=== PATIENT | female | born 1995 | race African-American/Black ===

== ENCOUNTER 2017-09-06 09:56 | Emergency (ER) | payer MEDICAID, OTHER ==
[~2017-09-06] VITALS: Ht 154.9 cm; Wt 71.2 kg
[2017-09-06 10:10] VITALS: BP 126/95
[2017-09-06] MEDS ORDERED: ACETAMINOPHEN 500 MG TAB PO ONE (11:00)
[2017-09-06] MEDS ORDERED: cefTRIAXone SOD 1,000 MG VL IM ONE (11:00)
[2017-09-06] MEDS ORDERED: metFORMIN HYDROCHLORIDE 500 MG TAB PO ONE (11:45)
== END 2017-09-06 12:14 | disposition home or self-care (01) ==
LOC: ER 09:56
DX: J03.90 Acute tonsillitis, unspecified (principal); E11.65 Type 2 diabetes mellitus with hyperglycemia
CPT/HCPCS: 71020; 81025; 82962; 96372; 99284; J0696

== ENCOUNTER 2017-10-08 00:53 | Emergency (ER) | payer MEDICAID, OTHER ==
[~2017-10-08] VITALS: Ht 154.9 cm; Wt 70.3 kg
[2017-10-08 01:32] LABS: Basophils # (auto) 0.2 uL; Basophils % (auto) 0.9 % (0.0-2.0); Eosinophils # (auto) 0.1 uL; Eosinophils % (auto) 0.3 % (0.0-7.0); Hematocrit 38.7 % (36.0-46.0); Lymphocytes # (auto) 4.1 uL; Lymphocytes % (auto) 21.9 % (10.0-50.0); Mean Corpuscular Hgb Conc. 33.7 g/dL (32.0-36.0); Mean Corpuscular Volume 80.4 fL (80.0-100.0); Monocytes % (auto) 5.3 % (0.0-12.0); Neutrophils # (auto) 13.3 uL; Neutrophils % (auto) 71.6 % (37.0-80.0); Platelet Count (auto) 389 10^3/uL (140-450); Red Blood Cells 4.82 10^6/uL (4.0-5.20); Red Cell Distribution Width 13.8 % (11.8-14.3); White Blood Cell 18.5 10^3/uL (4.4-10.8)
[2017-10-08 01:50] LABS: Albumin 3.5 g/dL (3.4-5.0); BUN/Creatinine Ratio 12.1; Bilirubin, Total 0.2 mg/dL (0.2-1.0); Calcium 9.2 mg/dL (8.5-10.1); Potassium 3.6 mmol/L (3.5-5.1); Total Protein 8.2 g/dL (6.4-8.2)
[2017-10-08 01:55] LABS: Urine Bacteria FEW /hpf (None Seen); Urine Blood 3+ /uL (Negative); Urine Mucus FEW (None Seen); Urine WBC 28 /hpf (0 - 5)
[2017-10-08 05:32] VITALS: BP 123/83
[2017-10-08] MEDS ORDERED: cefTRIAXone 1GM/10ml IVPUSH 10 ML IV ONE (06:45)
[2017-10-08] MEDS ORDERED: HYDROcodone-ACET 5/325MG TAB PO ONE (07:15)
[2017-10-08] MEDS ORDERED: SODIUM CHLORIDE 0.9% 1,000 ML IV ONE (07:22)
[2017-10-08] MEDS ORDERED: InsuLIN REG 1unit/0.01ml Soln (100units/ml) SC ONE (07:30)
== END 2017-10-08 07:58 | disposition left against medical advice (07) ==
LOC: ER 00:56
DX: N39.0 Urinary tract infection, site not specified (principal); E11.9 Type 2 diabetes mellitus without complications
CPT/HCPCS: 36415; 74176; 80053; 81001; 82150; 83690; 84702; 85025; 96374

== ENCOUNTER 2018-07-04 14:00 | Observation (INO) | payer MEDICAID ==
[2018-07-04] MEDS ORDERED: INSU100I2 SC ×2 (16:03)
[2018-07-04] MEDS ORDERED: PREN-96 PO (16:03)
== END 2018-07-04 15:05 | disposition home or self-care (01) | DRG 566 ==
LOC: LDRP 14:00
PROVIDERS: ADMIT Obstetrics & Gynecology; ATTEND Obstetrics & Gynecology
DX: O26.892 Other specified pregnancy related conditions, second trimester (principal); M54.30 Sciatica, unspecified side; R10.2 Pelvic and perineal pain; O99.89 Other specified diseases and conditions complicating pregnancy, childbirth and the puerperium; Z3A.20 20 weeks gestation of pregnancy
CPT/HCPCS: 59025; 81002; G0378

== ENCOUNTER 2018-09-14 15:30 | Observation (INO) | payer SELFPAY ==
[~2018-09-14] VITALS: Ht 154.9 cm; Wt 78.9 kg
[~2018-09-14 15:30] MED LIST: INSU100I2 SC; PREN-96 PO
[2018-09-14 16:09] LABS: Urine Bacteria NONE SEEN /hpf (None Seen); Urine Blood Negative /uL (Negative); Urine Mucus FEW (None Seen); Urine Specific Gravity 1.027 (1.001-1.035); Urine WBC 52 /hpf (0 - 5)
[2018-09-14 16:23] LABS: Alcohol, Urine < 3.0 mg/dL (0-5); Amphetamine Screen, Urine NEGATIVE (NEGATIVE); Barbiturate Scree,Urine NEGATIVE (NEGATIVE); Benzodiazephine Screen, Urine NEGATIVE (NEGATIVE); Cannabinoid Screen, Urine NEGATIVE (NEGATIVE); Cocaine Screen, Urine NEGATIVE (NEGATIVE); Opiate Scree,Urine NEGATIVE (NEGATIVE); Phencyclidine Screen, Urine NEGATIVE (NEGATIVE)
[2018-09-14] MEDS ORDERED: ONDANSETRON HCL 4 MG/2 ML VIAL IV PRN (16:45)
[2018-09-14] MEDS ORDERED: SODIUM CHLORIDE 0.9% 1,000 ML IV ONE (16:45)
[2018-09-14] MEDS ORDERED: INSUINJ2 SC ×2 (18:25)
== END 2018-09-14 18:10 | disposition home or self-care (01) | DRG 833 ==
LOC: LDRP 15:30
PROVIDERS: ADMIT Specialist; ATTEND Specialist
DX: O26.893 Other specified pregnancy related conditions, third trimester (principal); O24.419 Gestational diabetes mellitus in pregnancy, unspecified control; R10.9 Unspecified abdominal pain; R51 Headache; W19.XXXA Unspecified fall, initial encounter; Y93.89 Activity, other specified; Y92.89 Other specified places as the place of occurrence of the external cause; Y99.8 Other external cause status; Z3A.30 30 weeks gestation of pregnancy
CPT/HCPCS: 59025; 80307; 81001; 81002; 82948; 82962; G0378; J7030; 96361

== ENCOUNTER 2018-09-18 12:53 | Emergency (ER) | payer MEDICAID ==
[~2018-09-18] VITALS: Ht 154.9 cm; Wt 78.9 kg
[~2018-09-18 12:53] MED LIST changes: +INSUINJ2 SC
[2018-09-18 13:01] VITALS: BP 139/80
[2018-09-18 13:50] LABS: Basophils # (auto) 0 uL; Eosinophils # (auto) 0.1 uL; Red Cell Distribution Width 14.6 % (11.8-14.3)
[2018-09-18 13:52] LABS: Basophils % (auto) 0.2 % (0.0-2.0); Eosinophils % (auto) 0.4 % (0.0-7.0); Hematocrit 30.6 % (36.0-46.0); Hemoglobin 9.9 g/dL (12.2-16.2); Lymphocytes # (auto) 2.3 uL; Lymphocytes % (auto) 16.4 % (10.0-50.0); Mean Corpuscular Hemoglobin 25.2 pg (28.0-32.0); Mean Corpuscular Hgb Conc. 32.3 g/dL (32.0-36.0); Mean Corpuscular Volume 77.9 fL (80.0-100.0); Monocytes # (auto) 0.7 uL; Monocytes % (auto) 5.1 % (0.0-12.0); Neutrophils # (auto) 10.8 uL; Neutrophils % (auto) 77.9 % (37.0-80.0); Platelet Count (auto) 340 10^3/uL (140-450); Red Blood Cells 3.93 10^6/uL (4.0-5.20); White Blood Cell 13.9 10^3/uL (4.4-10.8)
[2018-09-18 14:11] LABS: Albumin 2.5 g/dL (3.4-5.0); Anion Gap 6 (5-15); Blood Urea Nitrogen 5 mg/dL (7-18); Calcium 8.4 mg/dL (8.5-10.1); Carbon Dioxide 25 mmol/L (21-32); Chloride 104 mmol/L (98-107); Glucose 218 mg/dL (74-106); Potassium 3.8 mmol/L (3.5-5.1); Sodium 135 mmol/L (136-145)
[2018-09-18 14:15] LABS: Alanine Aminotransferase 9 U/L (13-56); Alkaline Phosphatase 97 U/L (45-117); Aspartate Aminotransferase 10 U/L (15-37); BUN/Creatinine Ratio 11.1; Bilirubin, Total 0.2 mg/dL (0.2-1.0); GFR African American 224 mL/min; GFR Non-African American 185 mL/min; Total Protein 7.2 g/dL (6.4-8.2)
[2018-09-18 15:03] LABS: INR 0.93 (0.9-1.15)
== END 2018-09-18 22:37 | disposition left against medical advice (07) ==
LOC: ER 12:56
DX: R07.9 Chest pain, unspecified (principal); Z53.21 Procedure and treatment not carried out due to patient leaving prior to being seen by health care provider
CPT/HCPCS: 36415; 80053; 84484; 85025; 85610; 93005

== ENCOUNTER 2018-10-01 22:29 | Observation (INO) | payer MEDICAID | END 2018-10-01 23:57 | disposition home or self-care (01) | DRG 566 | LOC: LDRP 22:29 | PROVIDERS: ADMIT Obstetrics & Gynecology; ATTEND Obstetrics & Gynecology | DX: O99.810 Abnormal glucose complicating pregnancy (principal); O62.9 Abnormality of forces of labor, unspecified; O99.013 Anemia complicating pregnancy, third trimester; Z3A.32 32 weeks gestation of pregnancy | CPT/HCPCS: 59025; 81002; 82948; G0378 ==

== ENCOUNTER 2024-11-24 01:49 | Emergency (ER) | payer MEDICAID ==
[~2024-11-24] VITALS: Ht 154.9 cm; Wt 78.2 kg
[2024-11-24] MEDS ORDERED: ACETAMINOPHEN 325 MG TAB PO ONE (02:30)
[2024-11-24] MEDS ORDERED: BACDST PO (02:36)
[2024-11-24] MEDS ORDERED: ACET500T58 PO (02:36)
--- NOTE | 2024-11-24 02:37 | ED.PDOC ---
History of Present Illness(SKN HPI Comments 29-YEAR-OLD FEMALE PRESENTS TO ER FOR WOUND CHECK. PATIENT WITH PAST MEDICAL HISTORY SIGNIFICANT FOR POORLY CONTROLLED DIABETES REPORTS THAT SHE STARTED EXPERIENCING A TENDER PAINFUL LUMP LOCALIZED TO LEFT LOWER BUTTOCK YESTERDAY AND PRESENTS TO ER TODAY FOR WOUND CHECK. SHE REPORTS 10/10 PAIN LOCALIZED TO LEFT LOWER BUTTOCK. NOTES SHE HAS BEEN TAKING IBUPROFEN FOR PAIN WITH SLIGHT RELIEF. PATIENT PRESENTS TO ER AMBULATORY ON ARRIVAL, WITH STEADY GAIT, IN NO DISTRESS. DENIES FEVER, BODY ACHES, CHILLS, SKIN DRAINAGE, INJURY, CHANGES IN URINATION/BM OR ANY FURTHER SYMPTOMS/COMPLAINTS Chief Complaint: Wound Check Time Seen by MD: 02:15 Primary Care Provider: ARACELI History of Present Illness: Nurses Notes, Medications, Allergies Allergies: Coded Allergies: NO KNOWN ALLERGIES (Unverified , 12/20/14) Home Meds Reported Medications Insulin NPH (Human) (Isophane) (Humulin N) 100 Unit/Ml Inj, 10 UNIT SC PMHY, INJ 09/14/18 Insulin NPH (Human) (Isophane) (Humulin N) 100 Unit/Ml Inj, 12 UNIT SC AMHY, INJ 09/14/18 Vit W/ Ferrous Fumara ( One Daily) Daily Tab, 1 TAB PO DAILY, #90 TAB 3 Refills 07/04/18 Insulin Lispro (Human) (Humalog) 100 Unit/Ml Inj, 6 UNIT SC BID, INJ 07/04/18 Discontinued Scripts Acetaminophen (Acetaminophen) 500 Mg Tab, 500 MG PO Q4HPRN, #30 TAB 0 Refills Prov:ORQUIDEA TRONCOSO 11/24/24 Sulfamethoxazole W/Trimethopri (Bactrim Ds Tablet) 1 Tab Tb, 1 TAB PO BID for 7 Days, #14 TAB 0 Refills Prov:ORQUIDEA TRONCOSO 11/24/24 Information Source: Patient Mode of Arrival: Ambulatory Past Medical History PAST MEDICAL HISTORY: DM Surgical History: , Tonsillectomy 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 Pertinent FIELD SAMPLING TECHNICIAN History [facility] 11-14-24 Family History Family History: Unknown Social History Smoker: Non-Smoker Alcohol: Denies ETOH Use Drugs: Denies Drug Use Lives In: Home Constitutional: denies: chills, diaphoresis, fatigue, fever, malaise, sweats, weakness, others EENTM: denies: blurred vision, double vision, ear bleeding, ear discharge, ear drainage, ear pain, ear ringing, eye pain, eye redness, hearing loss, mouth pain, mouth swelling, nasal discharge, nose bleeding, nose congestion, nose pain, photophobia, tearing, throat pain, throat swelling, voice changes, others Respiratory: denies: cough, hemoptysis, orthopnea, SOB at rest, shortness of breath, SOB with excertion, stridor, wheezing, others Cardiovascular: denies: chest pain, dizzy spells, diaphoresis, Dyspnea on exertion, edema, irregular heart beat, left arm pain, lightheadedness, palpitations, PND, syncope, others Gastrointestinal: denies: abdomen distended, abdominal pain, blood streaked bowels, constipated, diarrhea, dysphagia, difficulty swallowing, hematemesis, melena, nausea, poor appetite, poor fluid intake, rectal bleeding, rectal pain, vomiting, others Genitourinary: denies: abnormal vagina bleeding, burning, dyspareunia, dysuria, flank pain, frequency, hematuria, incontinence, pain, , vagina discharge, urgency, others Neurological: denies: dizziness, fainting, headache, left sided numbness, left sided weakness, numbness, paresthesia, pre-existing deficit, right sided numbness, right sided weakness, seizure, speech problems, tingling, tremors, weakness, others Musculoskeletal: denies: back pain, gout, joint pain, joint swelling, muscle pain, muscle stiffness, neck pain, others Integumetry: reports: others ( STATED IN HPI) Allergic/Immunocompromised: denies: Difficulty Healing, Frequent Infections, Hives, Itching, others Hematologic/Lymphatic: denies: anemia, blood clots, easy bleeding, easy bruising, swollen glands, others Endocrine: denies: excessive hunger, excessive sweating, excessive thirst, excessive urination, flushing, intolerance to cold, intolerance to heat, un explained weight gain, unexplained weight loss, others Psychiatric: denies: anxiety, bipolar disorder, depression, hopeless, panic disorder, schizophrenia, sleepless, suicidal, others Physical Exam General Appearance: No Apparent Distress, Obese HEENT: PERRL/EOMI Neck: Full Range of Motion, Non-Tender, Normal Respiratory: Chest Non-Tender, Lungs Clear, No Accessory Muscle Use, No Respira tory Distress, Normal Breath Sounds Cardiovascular: No Murmur, No Gallop, Regular Rate/Rhythm Breast Exam: Deferred Gastrointestinal: NOT DONE Genitalia: Deferred Pelvic: Deferred Rectal: Deferred Extremities: Normal capillary refill, Normal range of motion Neurologic: Alert, commutator v ring assembler II-XII nml as Tested, No Motor Deficits, Normal Affect, Normal Mood, No Sensory Deficits Cerebellar Function: Normal Reflexes: Normal Skin: Dry, Warm, Other (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 NO FLUCTUANCE/DRAINAGE/FURTHER SKIN CHANGES NOTED) Peripheral Pulses: 2+ Radial (R), 2+ Radial (L), 2+ Brachial (R), 2+ Brachial (L) Lymphatic: No Adenopathy Was a procedure done? Was a procedure done?: No Sedation Sedation?: No Differential Diagnosis (INTG) Differential Diagnosis: Abrasion Differential Diagnosis: Abscess Differential Diagnosis: Retained Foreign Body, Other (DKA) X-Ray, Labs, Meds, VS Vital Signs Date Time Temp Pulse Resp B/P (MAP) Pulse Ox O2 Delivery O2 Flow Rate FiO2 11/24/24 03:51 149/98 11/24/24 03:03 108 20 98 Room Air 11/24/24 02:51 173/111 11/24/24 02:45 98.0 108 20 173/111 (131) 98 98.0 11/24/24 01:49 97.6 112 18 164/110 (128) 100 97.6 Lab Test 11/24/24 02:33 Range/Units White Blood Count 15.0 H 4.4-10.8 10^3/uL Red Blood Count 4.78 4.0-5.20 10^6/uL Hemoglobin 13.0 12.2-16.2 g/dL Hematocrit 39.6 36.0-46.0 % Mean Corpuscular Volume 83.0 80.0-100.0 fL Mean Corpuscular Hemoglobin 27.2 L 28.0-32.0 pg Mean Corpuscular Hemoglobin Concent 32.8 32.0-36.0 g/dL Red Cell Distribution Width 14.5 H 11.8-14.3 % Platelet Count 353 140-450 10^3/uL Mean Platelet Volume 8.3 6.9-10.8 fL Neutrophils (%) (Auto) 72.9 37.0-80.0 % Lymphocytes (%) (Auto) 20.6 10.0-50.0 % Monocytes (%) (Auto) 5.3 0.0-12.0 % Eosinophils (%) (Auto) 0.4 0.0-7.0 % Basophils (%) (Auto) 0.8 0.0-2.0 % Neutrophils # (Auto) 10.9 H 1.6-8.6 10 ^3/uL Lymphocytes # (Auto) 3.1 0.4-5.4 10 ^3/uL Monocytes # (Auto) 0.8 0-1.3 10 ^3/uL Eosinophils # (Auto) 0.1 0-0.8 10 ^3/uL Basophils # (Auto) 0.1 0-0.2 10 ^3/uL Nucleated Red Blood Cells 0.1 % Sodium Level 128 L 136-145 mmol/L Potassium Level 3.9 3.5-5.1 mmol/L Chloride Level 95 L 98-107 mmol/L Carbon Dioxide Level 25 20-31 mmol/L Anion Gap 8 5-15 Blood Urea Nitrogen 7 L 9-23 mg/dL Creatinine 0.95 0.550-1.02 mg/dL Glomerular Filtration Rate Calc 84 >90 mL/min BUN/Creatinine Ratio 7.4 L 10.0-20.0 Serum Glucose 615 *H 74-106 mg/dL Calcium Level 9.9 8.7-10.4 mg/dL CBC REVIEWED- WBC 15.0 BMP REVIEWED-SODIUM 128, CHLORIDE 95, SERUM GLUCOSE 615, BICARB-NORMAL, ANION GAP-NORMAL LACTIC ACID ORDERED ROCEPHIN 1 G IM ORDERED TYLENOL #3 1 TABLET P.O. ORDERED CLONIDINE .2 MG P.O. ORDERED HEP-LOCK IV ORDERED - PATIENT REFUSED NS 1 LITER IV ORDERED - PATIENT REFUSED INSULIN 10 UNITS IV ORDERED- PATIENT REFUSED DISCUSSED WITH PATIENT THE NEED FOR ADMISSION DUE TO SEVERE HYPERGLYCEMIA AND CELLULITIS OF LEFT BUTTOCK. PATIENT REFUSED AND STATES SHE WOULD LIKE TO SIGN OUT AGAINST MEDICAL ADVICE SEVERAL ATTEMPTS WERE MADE TO CONVINCE PATIENT TO STAY FOR FURTHER EVALUATION/TREATMENT WITHOUT SUCCESS RISKS OF SIGNING OUT AMA WERE DISCUSSED INCLUDING RISK OF PARTIAL/PERMANENT DISABILITY, RISK OF SEPSIS AND RISK OF . PATIENT ALERT AND ORIENTED X4 AND VERBALIZED FULL UNDERSTANDING OF SIGNING OUT AMA PATIENT SIGNED OUT OF ER AGAINST MEDICAL ADVICE Time of 1ST Reevaluation: 02:30 Reevaluation 1ST: N/A Patient Education/Counseling: Diagnosis, Treatment, Need For Follow Up, Other ( PATIENT SIGNED OUT AMA) Family Education/Counseling: No Family Present Departure 1 Departure Time of Disposition: 04:00 Impression: Primary Impression: Severe hyperglycemia due to diabetes mellitus Additional Impression: Cellulitis of buttock, left Disposition: 07 LEFT AGAINST MEDICAL ADVICE Condition: Critical Critical Care Note Critical Care Time?: No Stability Stability form required: No Heart Score Heart Score: Heart Score Response (Comments) Value History N/A 0 EKG N/A 0 Age N/A 0 Risk Factors N/A 0 Troponin N/A 0 Total 0 ORQUIDEA TRONCOSO Nov 24, 2024 02:37
[2024-11-24 02:45] VITALS: BP 173/111; TEMP 98
[2024-11-24] MEDS ORDERED: KETOROLAC TROMETH 60MG/2ML VIAL IM ONE (02:45)
[2024-11-24] MEDS: cefTRIAXone SOD 1,000 MG VL IM ONE (02:51)
[2024-11-24] MEDS: ACETAMINOPHEN/CODEINE#3 (300/30mg) TAB PO ONE (02:51)
[2024-11-24] MEDS: cloNIDine HCL 0.1 MG TAB PO ONE (02:51)
[2024-11-24 02:57] LABS: Basophils # (auto) 0.1 10 ^3/uL (0-0.2); Basophils % (auto) 0.8 % (0.0-2.0); Eosinophils # (auto) 0.1 10 ^3/uL (0-0.8); Eosinophils % (auto) 0.4 % (0.0-7.0); Hematocrit 39.6 % (36.0-46.0); Lymphocytes # (auto) 3.1 10 ^3/uL (0.4-5.4); Lymphocytes % (auto) 20.6 % (10.0-50.0); Mean Corpuscular Hemoglobin 27.2 pg (28.0-32.0); Mean Corpuscular Hgb Conc. 32.8 g/dL (32.0-36.0); Monocytes # (auto) 0.8 10 ^3/uL (0-1.3); Monocytes % (auto) 5.3 % (0.0-12.0); Neutrophils # (auto) 10.9 10 ^3/uL (1.6-8.6); Neutrophils % (auto) 72.9 % (37.0-80.0); Nucleated Red Blood Cells % 0.1 %; Platelet Count (auto) 353 10^3/uL (140-450); Red Blood Cells 4.78 10^6/uL (4.0-5.20); Red Cell Distribution Width 14.5 % (11.8-14.3)
[2024-11-24 03:03] VITALS: PULSE 108; RESP 20; O2SAT 98
[2024-11-24 03:31] LABS: Potassium 3.9 mmol/L (3.5-5.1)
[2024-11-24 03:32] LABS: Anion Gap 8 (5-15); Carbon Dioxide 25 mmol/L (20-31)
[2024-11-24 03:33] LABS: Calcium 9.9 mg/dL (8.7-10.4)
[2024-11-24 03:37] LABS: Chloride 95 mmol/L (98-107); Sodium 128 mmol/L (136-145)
[2024-11-24 03:38] LABS: BUN/Creatinine Ratio 7.4 (10.0-20.0)
[2024-11-24 03:48] LABS: Blood Urea Nitrogen 7 mg/dL (9-23)
[2024-11-24 03:49] LABS: Glucose 615 mg/dL (74-106)
[2024-11-24] MEDS ORDERED: InsuLIN REG 1unit/0.01ml Soln (100units/ml) IV ONE (04:00)
[2024-11-24] MEDS ORDERED: SODIUM CHLORIDE 0.9% 1,000 ML IV ONE ×2 (04:00)
== END 2024-11-24 04:00 | disposition left against medical advice (07) ==
LOC: ER 01:49
DX: E11.65 Type 2 diabetes mellitus with hyperglycemia (principal); L03.317 Cellulitis of buttock; Z79.4 Long term (current) use of insulin; Z90.89 Acquired absence of other organs; Z98.890 Other specified postprocedural states
CPT/HCPCS: 36415; 80048; 85025; 96372; 99283; J0696

== ENCOUNTER 2025-04-27 01:40 | Emergency (ER) | payer MEDICAID ==
[~2025-04-27] VITALS: Ht 162.6 cm; Wt 74.6 kg
--- NOTE | 2025-04-27 02:24 | ED.PDOC ---
Back pain HPI HPI Comments 29-YEAR-OLD FEMALE PRESENTS TO THE ED CHIEF COMPLAINT NECK PAIN THATS RADIATING DOWN TO BILATERAL SHOULDERS AND UPPER BACK SINCE YESTERDAY MORNING. 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 BP: 154/104, PATIENT STATES THAT SHE HAS NOT TAKEN HER BP MEDICATION, AMLODIPINE, BUT HAS IT AT HOME. ALL OTHER VSS. A&OX4. DENIES NUMBNESS, WEAKNESS, CHEST PAIN, SHORTNESS OF BREATH, DIZZINESS, HEADACHE, NAUSEA, VOMITING, SLURRED SPEECH, OR DIFFICULTY BREATHING. Chief Complaint: High Blood Pressure Time Seen by MD: 01:44 Primary Care Provider: ARACELI Reviewed Notes: Nurses Notes, Medications, Allergies Allergies: Coded Allergies: NO KNOWN ALLERGIES (Unverified , 12/20/14) Home Meds Active Scripts Ibuprofen (Ibuprofen) 600 Mg Tab, 600 MG PO TID PRN for 7 Days, #21 TAB Prov:SRUTHI TREJO [facility] 04/27/25 Tizanidine Hydrochloride (Tizanidine Hcl) 4 Mg Tab, 4 MG PO BID PRN for 7 Days, #14 TAB Prov:SRUTHI TREJO [facility] 04/27/25 Reported Medications Insulin NPH (Human) (Isophane) (Humulin N) 100 Unit/Ml Inj, 10 UNIT SC PMHY, INJ 09/14/18 Insulin NPH (Human) (Isophane) (Humulin N) 100 Unit/Ml Inj, 12 UNIT SC AMHY, INJ 09/14/18 Vit W/ Ferrous Fumara ( One Daily) Daily Tab, 1 TAB PO DAILY, #90 TAB 3 Refills 07/04/18 Insulin Lispro (Human) (Humalog) 100 Unit/Ml Inj, 6 UNIT SC BID, INJ 07/04/18 Information Source: Patient Mode of Arrival: Ambulatory Past Medical History PAST MEDICAL HISTORY: DM Surgical History: , Tonsillectomy FISH BIN TENDER History: No Pertinent FISH BIN TENDER History Family History Family History: Unknown Social History Smoker: Non-Smoker Alcohol: Denies ETOH Use Drugs: Denies Drug Use Lives In: Home All Other Systems: Reviewed and Negative (SEE HPI ) Physical Exam General Appearance: No Apparent Distress, Normal HEENT: Pharynx Normal Neck: Limited Range of Motion, Tender Lateral (LEFT LATERAL ) Respiratory: Lungs Clear, No Respiratory Distress, Normal Breath Sounds Cardiovascular: No Edema, No JVD, No Murmur, No Gallop, Normal Peripheral Pulses, Regular Rate/Rhythm Breast Exam: Deferred Gastrointestinal: No Organomegaly, Non Tender, No Pulsatile Mass, Normal Bowel Sounds, Soft Genitalia: Deferred Pelvic: Deferred Rectal: Deferred Extremities: Normal capillary refill, Normal range of motion, No pedal edema Musculoskeletal : Apperance: Normal Neurologic: Alert, No Motor Deficits, Normal Affect, Normal Mood, No Sensory Deficits Cerebellar Function: Normal Reflexes: Normal Skin: Dry, Normal Color, Warm Lymphatic: No Adenopathy Was a procedure done? Was a procedure done?: No Back Pain Differential Dx Differential Diagnosis: Fracture, Musculoskeletal Pain, Strain X-Ray, Labs, Meds, VS Vital Signs Date Time Temp Pulse Resp B/P (MAP) Pulse Ox O2 Delivery O2 Flow Rate FiO2 04/27/25 02:43 98.1 99 18 151/110 (124) 98 98.1 04/27/25 02:43 99 18 98 Room Air 04/27/25 01:41 98.6 96 16 154/104 98 98.6 Current Medications Medications (Trade) Dose Ordered Sig/Octavio Route Start Time Stop Time Status Last Admin Ketorolac Tromethamine (Toradol Injection) 60 mg ONCE ONCE IM 04/27/25 02:30 04/27/25 02:31 DC 04/27/25 02:37 Dexamethasone Sodium Phosphate (Decadron Injection) 10 mg ONCE ONCE IM 04/27/25 02:30 04/27/25 02:31 DC 04/27/25 02:36 Acetaminophen/ Hydrocodone Bitart (Lampe 5/325MG Tab) 1 tab ONCE ONCE PO 04/27/25 02:30 04/27/25 02:31 DC 04/27/25 02:36 X-Ray, Labs, Meds, VS Comment Patient given Toradol 60 mg IM, 10 mg Decadron IM, and Lampe 5 mg p.o.. Reports improvement in function and pain requesting discharge at this time. Script trial of muscle relaxer and anti-inflammatory. Advised on ice and heat. Advised to rest. Advised to follow up with her PCP in 2-3 days as necessary consider further imaging if symptoms persist or referral to physical therapy. ER return precautions given patient indicates understanding and agrees with discharge plan of care. Time of 1ST Reevaluation: 02:23 Reevaluation 1ST: Unchanged Time of 2ND Reevaluation: 01:35 Reevaluation 2ND: Improved Patient Education/Counseling: Diagnosis, Treatment, Prognosis, Need For Follow Up Family Education/Counseling: Diagnosis, Treatment, Prognosis, Need For Follow Up SEPSIS Sepsis Screen Date sepsis recognized/suspect: Apr 27, 2025 Time Sepsis recognized/suspect: 0151 Recent Procedure: No On Antibiotic Therapy: No Respiratory Rate >20: No Heart Rate >90: Yes Temp<36 C (96.8 F) or >38.3 C: No SBP <90 or MAP <65 mmHG: No New Acute Mental Status Change: No Is the patient on CPAP, BIPAP,: No Vital Signs Date Time Temp Pulse Resp B/P (MAP) Pulse Ox O2 Delivery O2 Flow Rate FiO2 04/27/25 02:43 98.1 99 18 151/110 (124) 98 98.1 04/27/25 02:43 99 18 98 Room Air 04/27/25 01:41 98.6 96 16 154/104 98 98.6 Medications Medications Dose Ordered Sig/Octavio Route Start Time Stop Time Status Last Admin Dose Admin Acetaminophen/ Hydrocodone Bitart 1 tab ONCE ONCE PO 04/27/25 02:30 04/27/25 02:31 DC 04/27/25 02:36 Dexamethasone Sodium Phosphate 10 mg ONCE ONCE IM 04/27/25 02:30 04/27/25 02:31 DC 04/27/25 02:36 Ketorolac Tromethamine 60 mg ONCE ONCE IM 04/27/25 02:30 04/27/25 02:31 DC 04/27/25 02:37 Departure 1 Departure Time of Disposition: 03:05 Impression: Primary Impression: Neck muscle strain Qualified Codes: S16.1XXA - Strain of muscle, fascia and tendon at neck level, initial encounter Disposition: 01 HOME / SELF CARE / HOMELESS Condition: Stable e-Prescriptions Ibuprofen (Ibuprofen) 600 Mg Tab 600 MG PO TID PRN for 7 Days, #21 TAB Prov: SRUTHI TREJO 04/27/25 Tizanidine Hydrochloride (Tizanidine Hcl) 4 Mg Tab 4 MG PO BID PRN for 7 Days, #14 TAB Prov: SRUTHI TREJO 04/27/25 Discharged With: Friend Critical Care Note Critical Care Time?: No Stability Stability form required: No SRUTHI TREJO Apr 27, 2025 02:24
[2025-04-27] MEDS: HYDROcodone-ACET 5/325MG TAB PO ONE (02:36)
[2025-04-27] MEDS: KETOROLAC TROMETH 60MG/2ML VIAL IM ONE (02:37)
[2025-04-27 02:43] VITALS: BP 151/110; PULSE 99; RESP 18; TEMP 98.1; O2SAT 98
[2025-04-27] MEDS ORDERED: TIZA-142 PO (03:07)
[2025-04-27] MEDS ORDERED: IBUP-1454 PO (03:07)
== END 2025-04-27 03:19 | disposition home or self-care (01) ==
LOC: ER 01:40
DX: S16.1XXA Strain of muscle, fascia and tendon at neck level, initial encounter (principal); E11.9 Type 2 diabetes mellitus without complications; Z90.89 Acquired absence of other organs; X58.XXXA Exposure to other specified factors, initial encounter; Y93.89 Activity, other specified; Y92.89 Other specified places as the place of occurrence of the external cause; Y99.8 Other external cause status
CPT/HCPCS: 96372; 99284; J1100; J1885